=== PATIENT | male | born 2000 | race Two or more races ===

== ENCOUNTER 2024-12-05 19:26 | Emergency (ER) | payer OTHER, SELFPAY ==
[2024-12-05 19:27] VITALS: BMI 23.7
--- NOTE | 2024-12-05 19:32 | XR_ITS ---
Examination: Ribs, right, with PA chest, 5 views Technique: Chest PA, RIBS AP, RPO, LPO, AP coned lower ribs 5 views Exam date and time: December 05, 2024 1948 hrs. Indications: Injury to the left wrist today, left rib pain Findings: Normal heart size No pneumothorax. No acute rib fractures Impression: No pneumothorax pulmonary contusion or hemothorax No acute rib fractures
[2024-12-05 19:33] VITALS: BP 123/73; PULSE 61; RESP 18; TEMP 36.8; O2SAT 100
--- NOTE | 2024-12-05 21:14 | XR_ITS ---
Examination: CT cervical spine without contrast 2-D sagittal reconstructions 2-D coronal reconstructions 3-D reconstructions. Exam date and time:December 05, 2028 at 20 minutes 33 hours Indications: Patient fell May today with injury to the neck, neck pain CTDI:vol (mGy) 7.81 DLP: (mGycm) 164 Technique: Multiple 2 mm axial sections of the cervical spine have been obtained. The coronal and sagittal reconstructions have been obtained. 3-D reconstructions have been obtained. Low dose protocols were performed. One or more of the following dose reduction techniques were used; automated exposure control, adjustment of the mA and/or KV according to patient size, use of iterative reconstruction technique. Findings: Axial sections demonstrate intact base of the skull. C1 exhibit satisfactory relationship to the odontoid. No acute cervical vertebral body fracture seen. Alignment posterior spinous processes satisfactory. Impression: No acute cervical fracture.
--- NOTE | 2024-12-05 21:14 | XR_ITS ---
Examination: CT brain head without contrast. 2-D sagittal coronal reconstructions Date and time of exam:December 05, 2024 at 1133 hrs. Indications: Patient fell today with injury to the head, head pain CTDI: vol (mGy):53.1 DLP: (mGycm):1053 Technique: Multiple CT axial sections of the brain have been obtained, 5 mm slice thickness. Contrast has not been administered. 2-D sagittal, coronal reconstructions have been obtained Low dose protocols were performed. One or more of the following dose reduction techniques were used; automated exposure control, adjustment of the mA and/or KV according to patient size, use of iterative reconstruction technique. Findings: No significant ventricular enlargement. Intra-axial or extra-axial hemorrhage density is not seen. No mass effect or midline shift Basal cisterns are not remarkable. Fourth ventricle is midline. Cranial vault intact. Impression: Negative for acute hemorrhage, mass effect or midline shift
--- NOTE | 2024-12-05 21:14 | XR_ITS ---
Examination: CT chest, without intravenous contrast. Sagittal and coronal 2-D reconstructions. Exam date and time: December 05, 2024 2137 hrs. Indications: Patient fell off a horse today with injury to the left chest, left chest pain CTDI:vol (mGy) 11.8 DLP: (mGycm) 473 Technique: Multiple 3.0 mm axial sections of the chest to been obtained. Bone and lung density settings are obtained. Sagittal and coronal 2-D reconstructions have been obtained. Low dose protocols were performed. One or more of the following dose reduction techniques were used; automated exposure control, adjustment of the mA and/or KV according to patient size, use of iterative reconstruction technique. Findings: Thoracic aorta pulmonary arteries appear intact on this noncontrast study No pericardial effusion No pneumothorax pulmonary contusion or hemothorax Acute fracture left fifth rib without significant displacement The manubrium and the body the sternum intact No thoracic vertebral body compression fracture No visualized liver or splenic laceration No gallstones No renal laceration No visualized abdominal aorta intact Impression: Acute fracture left fifth rib without significant displacement Thoracic aorta pulmonary arteries appear intact No pneumothorax, pulmonary contusion or hemothorax
--- NOTE | 2024-12-06 00:28 | EDNOTE_ITS ---
ED Fall Injury RME/HPI General Chief Complaint: Fall Stated Complaint: FELL OFF HORSE 30 MINUTES AGO, RIB PAIN Time Seen by Provider: 12/05/24 21:14 Arrival date/time: 12/05/24 19:26 24M with no significant PMH presents to ED with L rib/chest pain after he fell off his horse. There was some alcohol involved. Patient denies any other injuries, but did have some N/V after initial fall. Patient denies AMS, seizures, LOC, vision changes, ab pain, and back pain. Limitations: no limitations Related Data Previous Rx's ?Medication ?Instructions ?Recorded ibuprofen 800 mg tablet 800 mg PO Q6HR #30 tabs 05/31 02/15 naproxen 500 mg tablet 500 mg PO BID PRN pain #30 t abs 12/05/24 Allergies Allergy/AdvReac Type Severity Reaction Status Date / Time No Known Allergies Allergy Verified 12/05/24 19:27 Review of Systems Review of Systems Systems Reviewed: All systems reviewed, normal except as documented Constitutional Constitutional: Reports system reviewed and no additional complaints, except as documented, Denies fever(s) and Denies headache(s) ENT Ears, Nose, Mouth, and Throat: Denies disequilibrium and Denies headache(s) Cardiovascular Cardiovascular: Reports system reviewed and no additional complaints, except as documented, Reports as per HPI, Reports chest pain (L rib) and Denies dyspnea Respiratory Respiratory: Reports system reviewed and no additional complaints, except as documented, Denies cough and Denies dyspnea Gastrointestinal Gastrointestinal: Reports system reviewed and no additional complaints, except as documented, Denies abdominal pain, Denies nausea and Denies vomiting Neurologic Neurologic: Reports system reviewed and no additional complaints, except as documented, Denies confusion, Denies disequilibrium and Denies headache(s) Psychiatric Psychiatric: Denies confusion Past Medical History Past Medical History CARDIAC: Negative Congestive Heart Failure RESPIRATORY: Negative Chronic Obstructive Pulmonary Disease (COPD) GENITOURINARY: Negative Renal Disease ENDOCRINE: Negative Diabetes Mellitus Type 1 or Diabetes Mellitus Type 2 Social History SMOKING STATUS: Current some day smoker ED Exam General Limitations: Present no limitations General appearance: Present alert and in no apparent distress Head Head exam: Present atraumatic Eye Eye exam: Present normal appearance, PERRL and EOMI ENT ENT exam: Present normal exam, normal oropharynx and mucous membranes moist Neck Neck exam: Present normal inspection, full ROM and trachea midline Chest Chest inspection: Present symmetric chest wall rise and other (L rib) Respiratory Respiratory exam: Present normal lung sounds bilaterally Cardiovascular Cardiovascular exam: Present regular rate, normal rhythm and normal heart sounds Abdominal Exam Abdominal exam: Present soft and normal bowel sounds Extremities Exam Extremities exam: Present normal inspection and full ROM Back Exam Back exam: Present normal inspection and full ROM Neurological Exam Neurological exam: Present alert, oriented X3 and CN II-XII intact Psychiatric Psychiatric exam: Present normal affect and normal mood Skin Skin exam: Present warm, dry, intact and normal color Course Quality Measures none Orders Category Date Time Status CT cervical spine wo con Stat Exams 12/05/24 21:[address] chest wo con Stat Exams 12/05/24 21:[address] head/brain wo con Stat Exams 12/05/24 21:14 Completed XR ribs LT min 3V w CXR1V Stat Exams 12/05/24 19:32 Completed Vital Signs Vital signs: Vital Signs Temperature 98.2 F 12/05/24 19:33 Pulse Rate 61 12/05/24 19:33 Respiratory Rate 18 12/05/24 19:33 Blood Pressure 123/73 12/05/24 19:33 Pulse Oximetry (%) 100 12/05/24 19:33 Oxygen Delivery Method Room Air 12/05/24 19:33 O2 at 100% on RA and WNLs Fall MDM Narrative MDM Narrative:: 24M with no significant PMH presents to ED with L rib/chest pain after he fell off his horse. There was some alcohol involved. Patient denies any other injuries, but did have some N/V after initial fall. Patient denies AMS, seizures, LOC, vision changes, ab pain, and back pain. Physical exam reveals L rib tenderness, but normal WOB. Normal pupil response and EOM. Neck ROM intact and painful. Extremities normal. Gait normal. No midlin e back tenderness. No ab tenderness. Patient is afebrile, calm, and alert. XR no fx. CT reveals L non-displaced rib fx. Loom Fixer given. Patient data External records reviewed:: [facility] previous records Clinical information provided by:: patient Social determinants that could affect healthcare access:: none Patient has the following chronic illnesses:: none How is presenting disease/condition affected by chronic disease/condition?: no chronic disease Evaluation data The following diagnostics were reviewed and interpreted by me:: radiology exam(s) Lab and/or radiology exams considered but not ordered:: ordered Interpretation Summary: above Medications / Prescriptions Medications or Prescriptions considered but not ordered:: not ordered Medication administrations:: n/a Consultations Consultation(s) initiated? (list below): No Diagnosis Fall Differential Diagnosis: syncope, dislocation of shoulder region, fracture of wrist, compression fracture, concussion without loss of consciousness and other (fracture of rib, rib contusion) Most likely diagnosis given after review of the tests above:: fracture of rib Admission Indicated Admission indicated?: not indicated Admission Request Was there a request for admission?: No Disposition Plan Disposition Plan: Discharge Discharge Attestation Discharge Attestation: The patient and all family members were given an opportunity to ask questions and understood the discharge instructions. Discharge instructions specifically effects, indications for sooner follow up or return to the emergency department, and the expected course of current diagnosis. Patient condition: Stable Discharge Plan Plan Patient Disposition: HOME (Self Care) Disposition Comment: Stable Prescriptions/Referrals Prescriptions/Med Rec: New naproxen 500 mg tablet 500 mg PO BID PRN (Reason: pain) Qty: 30 0RF No Action ibuprofen 800 mg tablet 800 mg PO Q6HR Qty: 30 0RF Referrals: No Primary/Family,Physician [Primary Care Provider] - In 1 week Problem List Clinical Impression: Fracture of rib Patient/Caregiver Discharge Instructions Education Materials: ED Rib Fracture Additional Instructions: Please follow-up with PCP within 24-48 hours and return immediately if symptoms worsen. L 5th rib is broken/fractured. Print Language: Honduran Stand Alone Forms: Patient Portal Info Letter TATY/RADHA Supervising Physician TATY/RADHA Supervising Physician: Dr. Naranjo
== END 2024-12-05 22:47 | disposition home or self-care (01) ==
PROVIDERS: Emergency Provider Emergency Medicine
DX: S22.32XA Fracture of one rib, left side, initial encounter for closed fracture (principal); S19.9XXA Unspecified injury of neck, initial encounter; S09.90XA Unspecified injury of head, initial encounter; V80.010A Animal-rider injured by fall from or being thrown from horse in noncollision accident, initial encounter; Y93.52 Activity, horseback riding
CPT/HCPCS: 70450; 71101; 71250; 72125; 99284